=== PATIENT | male | born 1945 | race Caucasian/White ===

== ENCOUNTER 2021-11-15 06:58 | Emergency (ER) | payer MEDICARE ==
[~2021-11-15] VITALS: Ht 177.8 cm; Wt 62.0 kg
[2021-11-15 07:10] VITALS: BP 138/118
[2021-11-15 07:17] VITALS: BP 138/118
[2021-11-15] MEDS ORDERED: ZYRTEC10 MG PO (07:18)
[2021-11-15] MEDS ORDERED: PREDNISONE50 MG PO (08:02)
== END 2021-11-15 08:22 | disposition home or self-care (01) ==
LOC: ED 06:58
DX: R21 Rash and other nonspecific skin eruption (principal); E78.00 Pure hypercholesterolemia, unspecified